=== PATIENT | female | born 1985 | race Caucasian/White ===

== ENCOUNTER 2024-01-25 08:00 | Outpatient (RCR) | payer BC, SELFPAY ==
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
--- NOTE | 2024-01-25 10:15 | BH.SGPN.GN ---
Behaviors/Verbalizations/Mental Status: []Patient was alert and oriented, casually dressed and groomed. Eye contact scanning room. motor activity restless. speech within normal limits. Affect congruent, mood anxious. Thoughts linear, logical, no signs of hallucinations or delusion. Pt did express anxiety about being in group several times and expressed feeling paranoid about being around others. Pt did engage in group, however struggled at times with making comments to the group that were unrelated to the discussion. Pt made several comments to the group I'm just nervous and I don't want to be here. Client Response/Progress/Benefit: []Pt participated in the group discussions AEB nodding. Attentive during psychoeducation Goal Setting. Participated during the discussion on common barriers. Pt stated a personal barrier to accomplishing goals are laziness and unrealistic expectations. Group also identified benefits of goals as sense of purpose, improved self-confidence, more motivation for other goals, and improved mental health. Pt identified personal benefits to goal setting. Benefited from increased awareness of mental health benefits of goals as well as psychoeducation on SMART goal criteria. Will continue in IOP to increase healthy coping skills, improve mood stability, and prevent decompensation.
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
--- NOTE | 2024-02-11 14:27 | BH.COMM_ITS ---
Communication Note Communication with Client Communication Note: Client has been discharged from [facility] for 2 weeks while she was adjusting to her new medications to help decrease paranoia. This write spoke to client and client's father to check-in on how she was going. Both client and her father reported significant improvement. Client stated she has been able to several things independently and has decreased suspicion towards others. Client reported her goal is to return to her home in [place]. Client reported at this time she doesn't believe she needs to return to [facility].
== END 2024-01-27 11:35 | disposition home or self-care (01) ==
LOC: BHIOP 08:00
PROVIDERS: Referring Provider Psychiatry & Neurology Psychiatry; Visit Provider Psychiatry & Neurology Psychiatry
DX: F20.9 Schizophrenia, unspecified (principal); F41.9 Anxiety disorder, unspecified; Z79.899 Other long term (current) drug therapy
CPT/HCPCS: S9480; 90853